=== PATIENT | male | born 1955 | race Caucasian/White ===

== ENCOUNTER 2018-01-03 00:08 | Outpatient (CLI) | payer OTHER, SELFPAY ==
[2018-01-03 11:40] LABS: ALT 29 U/L (12-78); AST 22 U/L (15-37); Albumin 3.7 g/dL (3.4-5.0); Alkaline Phosphatase 63 U/L (46-116); Anion Gap 5.5 mmol/L (3-11); BUN 18 mg/dL (7-18); Bilirubin, Total 0.8 mg/dL (0.2-1.0); CO2 29.5 mmol/L (21.0-32.0); Calcium 8.9 mg/dL (8.5-10.1); Chloride 104 mmol/L (98-107); Cholesterol 190 mg/dL (50-200); Glucose 89 mg/dL (70-100); HDL Cholesterol 86 mg/dL (40-60); LDL CHOLESTEROL 97 mg/dL (<100); Potassium 4.3 mmol/L (3.5-5.1); Sodium 139 mmol/L (136-145); Total Protein 7.2 g/dL (6.4-8.2); Triglyceride 37 mg/dL (30-150)
[2018-01-05 10:21] LABS: PSA, Screening 0.5 ng/ml (0-4.5)
== END 2018-01-03 00:28 ==
PROVIDERS: PCP Nurse Practitioner Family; Visit Provider Nurse Practitioner Family
DX: Z12.5 Encounter for screening for malignant neoplasm of prostate (principal); Z13.220 Encounter for screening for lipoid disorders; Z13.6 Encounter for screening for cardiovascular disorders
CPT/HCPCS: 36415; 80053; 80061; 83721; 84153

== ENCOUNTER 2022-10-30 18:03 | Emergency (ER) | payer OTHER, SELFPAY ==
[2022-10-30] VITALS (18 sets, daily range): BP systolic 93–134; BP diastolic 59–70; PULSE 70–93; RESP 13–27; TEMP 36.6; O2SAT 94
--- NOTE | 2022-10-30 18:30 | RT.EKG_ITS ---
APPROVED REPORT Exam: Resting ECG Reason for Exam: dizziness Patient Location: E HR:84 bpm ECG Measurements Heart Rate 84 AXIS NV 153 P 86 QRSd 92 QRS 78 QT 406 T 68 QTc 478 Conclusion Sinus rhythm...normal P axis, V-rate 60- 99 sinus rhythm, normal axis, normal intervals, non ischemic
--- NOTE | 2022-10-30 19:00 | DI.CT_ITS ---
Exam(s) CT NECK W EXAM: CT NECK W INDICATION: dental abscess and swelling. COMPARISON: No exams were available for comparison TECHNIQUE: FINDINGS: SOFT TISSUES: There is some soft tissue swelling in the lower right face subcutaneous tissues extendi ng into the upper neck but without a distinct abscess evident. VISUALIZED PARANASAL SINUSES: Mucosal thickening and fluid in the right maxillary sinus consistent wi th sinusitis. No sinus wall dehiscence. The opposite-left maxillary sinus appears unremarkable as d o the frontal and sphenoid sinuses. VISUALIZED ORBITS: Unremarkable NASOPHARYNX: Unremarkable OROPHARYNX: Unremarkable. Uvula and tonsils unremarkable. No prevertebral soft tissue swelling. No abscess evident in this region. GENOVEVA DENTAL: Just lateral to the right side of the mandible there is a tubular foreign body structure measuring 2.7 cm length by 0.4 cm wide which is probably short catheter or radiopaque marked bandage material which is most probably with in the oral convert EU between the lateral aspect of the right s francisco of the mandible and buccal mucosa at this level. Clinical correlation recommended. There is an adjacent empty tooth socket in the posterior right mandible at this level which is probably from rece nt extraction of this posterior right mandible molar. HYPOPHARYNX: Unremarkable. Valleculae and epiglottis and aryepiglottic folds appear normal. VOCAL CORDS: Unremarkable. No masses evident. Subglottic airway appears unremarkable. THYROID GLAND: Unremarkable. Normal size and no obvious nodules. SALIVARY GLANDS: Unremarkable. No significant findings in the parotid and submandibular glands. LYMPH NODES: No prominent adenopathy in the neck and supraclavicular regions. OTHER: VISUALIZED LUNG APICES: No significant focal findings. IMPRESSION: 1. There appears to have been recent extraction of a posterior right mandibular molar. Just lateral to this level is a tubular radiopaque foreign body which is either radiopaque folded gauze or tubula r catheter which I suspect was placed by the dentist performed the extraction. 2. There is soft tissue swelling over the right lower face extending into the upper neck but without evidence of subcutaneous abscess. No gross lymphadenopathy evident. 3. Sinusitis findings evident in the right maxillary sinus. The opposite-left maxillary sinus is cl ear. RADIATION DOSE DELIVERED: 298.2mGy.cm Total DLP DATA REPOSITORY: All CT scans at this facility are submitted to the National Radiology Data Registry (NRDR) Dose Index Registry (DIR) with the [employer] ([employer]). RADIATION OPTIMIZATION: All CT scans at this facility use at least one of these dose optimization te chniques: automated exposure control; mA and/or kV adjustment per patient size (includes targeted exa ms where dose is matched to clinical indication); or iterative reconstruction.
--- NOTE | 2022-10-30 19:00 | DI.RAD_ITS ---
Exam(s) XR CHEST 2V PA LATERAL EXAM: XR CHEST 2V PA LATERAL CLINICAL HISTORY: weakness. TECHNIQUE: 2D digital imaging was performed. COMPARISON: CT CT CHEST LUNG CANCER SCREEN from 04/30/2022 FINDINGS: 2 views: Heart size is normal. The mediastinum is not widened. Bilateral nipple shadows noted. Right lung is clear. There is platelike atelectasis in the left hang g base lingular segment. No pleural effusions. IMPRESSION: Platelike atelectasis in left lung base. DATA REPOSITORY: RADIATION DOSE DELIVERED:
--- NOTE | 2022-10-30 19:00 | DI.CT_ITS ---
Exam(s) CT HEAD WO EXAM: CT HEAD WO CLINICAL HISTORY: confusion, dental abscess. TECHNIQUE: Imaging Protocol: Axial computed tomography images with coronal and sagittal reformatted images were created and reviewed COMPARISON: No exams were available for comparison FINDINGS: There are no skull fractures. There is mucosal thickening and fluid in the partially visualized right maxillary sinus. Partially visualized left maxillary sinus is clear as are the sphenoid and frontal sinuses and ethmoidal air cells. There is also no effusions evident in the mastoid air cells bilate rally. There is no evidence of intracranial hemorrhage, mass effect, or shift of midline structures. There are no extra-axial fluid collections. The ventricles are not enlarged or shifted and there is no blo od within the ventricular system nor within the basal cisterns. IMPRESSION: No acute intracranial findings on this noninfused CT scan of the brain. Right maxillary sinusitis. RADIATION DOSE DELIVERED: 778.52mGy.cm Total DLP DATA REPOSITORY: All CT scans at this facility are submitted to the National Radiology Data Registry (NRDR) Dose Index Registry (DIR) with the [employer] ([employer]). RADIATION OPTIMIZATION: All CT scans at this facility use at least one of these dose optimization te chniques: automated exposure control; mA and/or kV adjustment per patient size (includes targeted exa ms where dose is matched to clinical indication); or iterative reconstruction.
[2022-10-30] MEDS: Normal Saline 1,000 ML 1000 ML IV ×2 (19:22→20:47)
[2022-10-30 19:28] LABS: Abs Immature Grans 0.07 10^3/uL (0.0-0.06); Absolute Basophil Count 0.08 10^3/uL (0.0-0.2); Absolute Eosinophil Count 0.11 10^3/uL (0.0-0.7); Absolute Lymphocyte Count 1.81 10^3/uL (1.2-3.4); Absolute Monocyte Count 0.87 10^3/uL (0.1-0.8); Basophils % 0.7; Eosinophils % 0.9; HCT 45.3 % (40.0-50.0); HGB 15.4 g/dL (13.5-17.5); Immature Grans % 0.6; MCH 32.4 pg (27.0-33.0); MCV 95 fL (80-95); Monocytes % 7.2; Neutrophils % 75.6; RBC 4.75 10^6/uL (4.36-5.78); RDW 13.7 % (11.8-14.1); WBC 12.04 10^3/uL (4.4-10.8)
[2022-10-30 19:33] LABS: Lactate 3.1 mmol/L (0.6-1.4)
[2022-10-30 19:51] LABS: Ammonia 27 umol/L (11-32)
[2022-10-30 19:59] LABS: Platelet Count 306 10^3/uL (130-400)
[2022-10-30 20:02] LABS: ALT 40 U/L (16-63); AST 45 U/L (15-37); Albumin 3.4 g/dL (3.4-5.0); Alkaline Phosphatase 77 U/L (46-116); Anion Gap 13.6 mmol/L (3-11); BUN 19 mg/dL (7-18); Bilirubin, Total 0.3 mg/dL (0.2-1.0); CO2 22.4 mmol/L (21.0-32.0); Calcium 9.1 mg/dL (8.5-10.1); Chloride 95 mmol/L (98-107); ETHANOL BLOOD 24.5 mg/dL (<10); Estimated GFR 83.01 (mL/min/1.73m2); Glucose 98 mg/dL (74-106); Magnesium 2.2 mg/dL (1.8-2.4); Potassium 3.6 mmol/L (3.5-5.1); Sodium 131 mmol/L (136-145); TSH (W/Ref FT4) 2.64 uIU/mL (0.36-3.74); Total Protein 7.7 g/dL (6.4-8.2); Troponin I < 50 ng/L (<or=60)
[2022-10-30 20:05] LABS: Procalcitonin 0.1 ng/mL
[2022-10-30] MEDS: Omnipaque 350 MG/ML 100 ML BTL IJ (20:55)
[2022-10-30] MEDS: Normal Saline - Diluent 50 ML VIAL IJ (20:56)
--- NOTE | 2022-10-30 21:18 | DI.VRAD_ITS ---
PROCEDURE INFORMATION: Exam: CT Head Without Contrast Exam date and time: 10/30/2022 8:54 PM Age: 67 years old Clinical indication: Other: Dental abscess and swelling, confusion TECHNIQUE: Imaging protocol: Computed tomography of the head without contrast. Radiation optimization: All CT scans at this facility use at least one of these dose optimization techniques: automated exposure control; mA and/or kV adjustment per patient size (includes targeted exams where dose is matched to clinical indication); or iterative reconstruction. COMPARISON: No relevant prior studies available. FINDINGS: Brain: No acute intracranial hemorrhage, mass-effect, midline shift, or extra-axial collection is seen. The blake white matter differentiation appears preserved. Cerebral ventricles: The ventricular system and basilar cisterns appear appropriate in size and configuration. Paranasal sinuses: There is mucoperiosteal thickening and fluid in the visualized upper portion of the right maxillary sinus. There is minimal mucoperiosteal thickening in the visualized ethmoid air cells. Mastoid air cells: The mastoid air cells appear well-aerated. Auditory system: The middle ear cavities appear clear. Orbital cavities: The globes and intraorbital structures appear grossly intact. Bones/joints: The bony calvarium appears intact. No depressed skull fracture is seen. Soft tissues: No significant scalp lesion is seen. IMPRESSION: 1. No acute intracranial abnormality seen. 2. Mucoperiosteal thickening in the visualized upper portion of the right maxillary sinus. Acute sinusitis could have this appearance. Clinical correlation is recommended. Dictated and Authenticated by: Ross Lujan MD. Ordering:ATUL Sepulveda MD
--- NOTE | 2022-10-30 21:30 | DI.VRAD_ITS ---
PROCEDURE INFORMATION: Exam: XR Chest Exam date and time: 10/30/2022 9:02 PM Age: 67 years old Clinical indication: Other: Weakness TECHNIQUE: Imaging protocol: Radiologic exam of the chest. Views: 2 views. COMPARISON: CT CHEST LUNG CANCER SCREEN 04/30/2022 3:51 PM FINDINGS: Lungs: No pulmonary consolidation is seen. There are symmetric 8 mm nodular densities projected along the expected nipple line, probably representing shadowing from the patient's nipples. Pleural spaces: No pleural effusion or pneumothorax is seen. Heart/Mediastinum: Heart size is normal. Bones/joints: The visualized bony structures appear grossly intact, as seen. IMPRESSION: No active disease is seen in the chest. Dictated and Authenticated by: Ross Lujan MD. Ordering:ATUL Sepulveda MD
--- NOTE | 2022-10-30 21:46 | DI.VRAD_ITS ---
PROCEDURE INFORMATION: Exam: CT Neck With Contrast Exam date and time: 10/30/2022 8:56 PM Age: 67 years old Clinical indication: Other: Dental abscess and swelling; Additional info: Dental abscess and swelling, confusion TECHNIQUE: Imaging protocol: Computed tomography of the neck with contrast. Radiation optimization: All CT scans at this facility use at least one of these dose optimization techniques: automated exposure control; mA and/or kV adjustment per patient size (includes targeted exams where dose is matched to clinical indication); or iterative reconstruction. Contrast material: OMNI 350; Contrast volume: 100 ml; Contrast route: INTRAVENOUS (IV); COMPARISON: CT HEAD WO 10/30/2022 8:54 PM FINDINGS: Orbital cavities: The globes and intraorbital structures appear grossly intact. Mastoid air cells: The mastoid air cells appear well-aerated. Auditory system: The middle ear cavities appear clear. Paranasal sinuses: There is thick mucoperiosteal thickening and fluid in the right maxillary sinus. There is minimal mucoperiosteal thickening in the right ethmoid air cells. Dental: The teeth are partly obscured by artifact from metallic dental work. Within the limits of visualization, no large dental cavity is seen. There is an empty tooth socket in the posterior right mandible suggesting recent extraction of a posterior right mandibular molar. There is a small periapical lucency surrounding the root of the left lateral mandibular incisor, images 28 of series 5 and 32 of series 3, nonspecific but likely a periapical cyst or sequela of chronic apical periodontitis. Pharynx: The nasopharynx appears normal. The oropharynx appears normal. The hypopharynx appears normal. Larynx: The epiglottis appears normal. The larynx appears symmetric. Prevertebral and retropharyngeal spaces: No retropharyngeal fluid collection is demonstrated. Salivary glands: The submandibular salivary glands and parotid glands appear grossly normal. Thyroid: The thyroid gland appears normal in size. Lymph nodes: No pathologically enlarged cervical chain lymph nodes are seen. Trachea: The visualized portion of the trachea appears normal. Lungs: There is emphysema throughout the upper lung zones. Bones/joints: The thyroid cartilage and cricoid cartilage appear symmetric. The hyoid bone appears grossly intact. Vasculature: The carotid arteries, jugular veins, and vertebral arteries are not well evaluated but appear grossly patent, as seen. Soft tissues: There is soft tissue swelling throughout the right lower face and extending into the upper right neck. Within the limits of visualization, no frankly drainable soft tissue abscess is seen. There is radiodense foreign material located along the lateral margin of the right mandibular body with an appearance suspicious for a folded tubular foreign body such as a short catheter fragment or coffee straw. Direct inspection is recommended. It is uncertain if this finding lies within the mouth between the mandibular alveolar ridge in the buccal mucosa or within the adjacent soft tissues. No gross soft tissue fluid collection or mass is seen in the neck. IMPRESSION: 1. Soft tissue swelling throughout the right lower face and extending into the upper neck. No frankly organized drainable fluid collection/abscess seen. Unusual radiodense foreign material along the lateral margin of the right mandibular body with an appearance suspicious for a folded tubular foreign body such as a short catheter, catheter fragment, or coffee straw. It is uncertain if this finding lies within the mouth between the mandibular alveolar ridge in the buccal mucosa or within the adjacent soft tissues. Clinical correlation and direct inspection are recommended. Of note, there is an adjacent empty tooth socket in the posterior right mandible with an appearance suggesting recent extraction of a posterior right mandibular molar. 2. Prominent mucoperiosteal thickening and fluid in the right maxillary sinus with an appearance suspicious for acute on chronic sinusitis. Clinical correlation is recommended. 3. Small periapical dental lucency surrounding the root of the lateral left mandibular incisor. Although nonspecific, a periapical cyst or sequela of chronic apical periodontitis could have this appearance. Dictated and Authenticated by: Ross Lujan MD. Ordering:ATUL Sepulveda MD
[2022-10-30 22:20] LABS: Lactate 0.9 mmol/L (0.6-1.4)
[2022-10-30 22:24] LABS: Troponin I < 50 ng/L (<or=60)
[2022-10-30 22:42] LABS: Bilirubin Negative (Negative); Blood Small (Negative); Clarity Clear (Clear); Glucose Negative (Negative); Ketones Negative (Negative); Leukocyte Esterase Negative (Negative); Nitrite Negative (Negative); Specific Gravity <= 1.005 (1.005-1.025); Urobilinogen 0.2 mg/dL (Up to 0.2); pH 5.5 (5-8)
[2022-10-30 22:58] LABS: Bacteria Rare HPF (Negative); C & S Indicated? No; Casts 0-2 Hyaline LPF (Negative); Crystals Negative HPF (Negative); Epithelial Cells Rare HPF (Negative); Mucus Negative (Negative); WBC 0-2 HPF (0-5)
--- NOTE | 2022-10-30 23:04 | ED.GENADUL_ITS ---
Discharge Plan Disposition Patient Disposition: Home Discharge Details Clinical Impression: Syncope, Dehydration Primary Care Provider: Deborah Aponte ED Provider: Coco Lewis Home Meds and New Rx's Prescriptions: Continued ibuprofen 400 MG tablet 400 mg PO PRN aspirin 81 MG tablet,chewable 81 mg PO DAILY amoxicillin-pot clavulanate 875-125 mg Tablet 1 tab PO BID Discharge Instructions Instructions: Dehydration (ED), Syncope (ED) Additional Instructions: Please follow-up with your primary care physician Have at least ten 8 ounce glasses of water daily, use a straw as I am sure your jaw is quite painful Continue on your antibiotics Follow-up with your doctor tomorrow Return earlier should you have new or worsening complaints Referrals: Deborah Aponte [Primary Care Provider] - Medical Decision Making This 67-year-old male presents with report of possible syncopal event just prior to arrival with persistent confusion Arrival, patient is fully alert and oriented, his vitals are stable, he states he feels weak He states has not been drinking secondary to discomfort Secondary presentation, I did order CT head and facial, evidence of dental decay and drained abscess No evidence of Ron's angina, no CT evidence of acute abnormality Diagnostic blood work does not show significant acute abnormality, initial lactate elevated at 3.1, the tourniquet was on patient's arm at time this was drawn, on repeat it 0.9, after 2 L of fluid, patient has marked improvement in his symptoms, he is ambulatory with steady gait, his gap is 13.9, suspect this was dehydration induced I did consider seizure, however there is no seizure-like activity visualized, patient will need follow-up with his doctor tomorrow He is encouraged to drink at least ten 8 ounce glasses of water daily Patient discharged home in stable condition with stable vitals, will need close outpatient reassessment Alert and oriented and at his baseline per brother and patient in the room, requesting discharge home Medical Records Medical records reviewed: Yes I reviewed the patient's medical records. Lab Data Lab results reviewed: Yes I reviewed the patient's lab results. HPI General Date/Time Provider Initiated Documentation: 10/30/22 18:53 . HPI Narrative: This 67-year-old gentleman with history of alcohol dependence, cannabis dependence, major depressive disorder presents after having a drain placed and abscess the right side of his jaw lower area yesterday in [facility]. He states that he has been having trouble drinking secondary to discomfort with opening his jaw. He denies any chest pain or shortness of breath. He denies any difficulty swallowing. Patient denies any headache. He states today he had gone from sitting to standing and he felt tingly all over the next and he knew he was on the ground. His states that he was really quite out of it at home . She requested that he be evaluated in the emergency department. He denies any chest pain or shortness of breath. He denies any chills but feels like he might have a fever. He states his jaw actually feels better after the drain has been placed yesterday. He denies any difficulty swallowing. He states his jaw still painful. He denies any nausea or vomiting. Denies any illicit drug use. Has had 2 beers today per patient. Has smoked marijuana prior to arrival. Related Data Home Medications Medication Instructions Recorded Confirmed aspirin 81 mg chewable tablet 81 mg PO DAILY 09/16/17 12/01/17 ibuprofen 400 mg tablet 400 mg PO PRN 09/16/17 12/01/17 amoxicillin 875 mg-potassium 1 tab PO BID 10/30/22 10/30/22 clavulanate 125 mg tablet Allergies Allergy/AdvReac Type Severity Reaction Status Date / Time No Known Allergies Allergy Verified 10/30/22 18:38 General Stated Complaint: GenMedical REY: 2 PFSH All Active Problems (Updated 10/30/22 @ 22:59 by JIM Deal) Syncope (Chronic) Dehydration (Acute) Medical History (Updated 10/30/22 @ 22:59 by JIM Deal) Alcohol dependence Ankle fracture, left Bilateral femoral fractures Cannabis dependence Cervicalgia Finger amputation, no complication Irritability and anger Major depressive disorder Personal history of colonic polyps Post-traumatic osteoarthritis Right patella fracture Sciatic pain Tobacco use disorder Surgical History (Updated 12/24/17 @ 14:36 by [employer] [facility]) Appendectomy Colonoscopy - IV Sedation (07/08/13) 3 tubular adenomas Repair of inguinal hernia right Social History (Updated 12/01/17 @ 14:48 by Natacha Mack RN) Smoking/Tobacco Use Status: Current every day Smoking risk assessment performed?: Yes Alcohol Intake: current Alcohol type: beer Drug use: Daily Substance use type: marijuana Housing: house Do you feel safe at home: Yes Do you feel safe in your relationship?: Yes Course Vital Signs Vital signs: Vital Signs Temperature 36.6 C 10/30/22 18:39 Pulse 76 10/30/22 18:39 Respiratory Rate 18 10/30/22 18:39 Blood Pressure 111/66 10/30/22 18:39 Pulse Oximetry 94 10/30/22 18:39 Temperature 36.6 C 10/30/22 18:39 Temperature Source Oral 10/30/22 18:39 Pulse 70 10/30/22 20:31 Pulse 71 10/30/22 20:31 Respiratory Rate 18 10/30/22 20:31 Respiratory Effort Normal 10/30/22 18:52 Respiratory Depth Normal 10/30/22 18:52 Respiratory Pattern Normal 10/30/22 18:52 Blood Pressure 134/68 10/30/22 20:31 Blood Pressure Mean 82 10/30/22 20:31 Blood Pressure Position Sitting 10/30/22 18:39 Pulse Oximetry 94 10/30/22 18:39 Oxygen Delivery Method Room Air 10/30/22 18:39 Oxygen Flow Rate 0 10/30/22 18:39 Pain Level 5 10/30/22 18:39 Lab/Test Results Lab/Test Results: 10/30/22 19:15 Blood Blood Culture - Pending 10/30/22 19:15 Blood Blood Culture - Pending Laboratory Tests Range/Units 10/30/22 10/30/22 10/30/22 19:15 19:15 19:15 WBC (4.4-10.8) 10^3/uL RBC (4.36-5.78) 10^6/uL Hgb (13.5-17.5) g/dL Hct (40.0-50.0) % MCV (80-95) fL MCH (27.0-33.0) pg MCHC (32.0-36.0) % RDW (11.8-14.1) % Plt Count (130-400) 10^3/uL MPV (8.0-11.0) fL Immature Gran % Neutrophils % Lymphocytes % Monocytes % Eosinophils % Basophils % Nucleated RBC % (0.0-0.3) % Absolute Neutrophils (1.2-6.7) 10^3/uL Absolute Lymphocytes (1.2-3.4) 10^3/uL Absolute Monocytes (0.1-0.8) 10^3/uL Absolute Eosinophils (0.0-0.7) 10^3/uL Absolute Basophils (0.0-0.2) 10^3/uL VBG Lactate (0.6-1.4) mmol/L 3.1 H* Sodium (136-145) mmol/L 131 L Potassium (3.5-5.1) mmol/L 3.6 Chloride (98-107) mmol/L 95 L Carbon Dioxide (21.0-32.0) mmol/L 22.4 Anion Gap (3-11) mmol/L 13.6 H BUN (7-18) mg/dL 19 H Creatinine (0.70-1.30) mg/dL 1.0 Est GFR (CKD-EPI 2020) (mL/min/1.73m2) 83.01 Glucose (74-106) mg/dL 98 Calcium (8.5-10.1) mg/dL 9.1 Magnesium (1.8-2.4) mg/dL 2.2 Total Bilirubin (0.2-1.0) mg/dL 0.3 AST (15-37) U/L 45 H ALT (16-63) U/L 40 Alkaline Phosphatase (46-116) U/L 77 Ammonia (11-32) umol/L 27 Troponin I (<or=60) ng/L < 50 Total Protein (6.4-8.2) g/dL 7.7 Albumin (3.4-5.0) g/dL 3.4 Procalcitonin ng/mL 0.1 TSH (0.36-3.74) uIU/mL 2.64 Urine Color (Yellow) Urine Clarity (Clear) Urine pH (5-8) Ur Specific [place] (1.005-1.025) Urine Protein (Negative) mg/dL Urine Ketones (Negative) mg/dL Urine Blood (Negative) Urine Nitrite (Negative) Urine Bilirubin (Negative) Urine Urobilinogen (Up to 0.2) mg/dL Ur Leukocyte Esterase (Negative) Urine RBC (0-2) HPF Urine WBC (0-5) HPF Ur Epithelial Cells (Negative) HPF Urine Crystals (Negative) HPF Urine Bacteria (Negative) HPF Urine Casts (Negative) LPF Urine Mucus (Negative) Ur Culture Indicated? Urine Glucose (Negative) mg/dL Ethyl Alcohol (<10) mg/dL 24.5 H Range/Units 10/30/22 10/30/22 10/30/22 19:15 21:59 22:12 WBC (4.4-10.8) 10^3/uL 12.04 H RBC (4.36-5.78) 10^6/uL 4.75 Hgb (13.5-17.5) g/dL 15.4 Hct (40.0-50.0) % 45.3 MCV (80-95) fL 95 MCH (27.0-33.0) pg 32.4 MCHC (32.0-36.0) % 34.0 RDW (11.8-14.1) % 13.7 Plt Count (130-400) 10^3/uL 306 MPV (8.0-11.0) fL Immature Gran % 0.6 Neutrophils % 75.6 Lymphocytes % 15.0 Monocytes % 7.2 Eosinophils % 0.9 Basophils % 0.7 Nucleated RBC % (0.0-0.3) % 0.0 Absolute Neutrophils (1.2-6.7) 10^3/uL 9.10 H Absolute Lymphocytes (1.2-3.4) 10^3/uL 1.81 Absolute Monocytes (0.1-0.8) 10^3/uL 0.87 H Absolute Eosinophils (0.0-0.7) 10^3/uL 0.11 Absolute Basophils (0.0-0.2) 10^3/uL 0.08 VBG Lactate (0.6-1.4) mmol/L 0.9 Sodium (136-145) mmol/L Potassium (3.5-5.1) mmol/L Chloride (98-107) mmol/L Carbon Dioxide (21.0-32.0) mmol/L Anion Gap (3-11) mmol/L BUN (7-18) mg/dL Creatinine (0.70-1.30) mg/dL Est GFR (CKD-EPI 2020) (mL/min/1.73m2) Glucose (74-106) mg/dL Calcium (8.5-10.1) mg/dL Magnesium (1.8-2.4) mg/dL Total Bilirubin (0.2-1.0) mg/dL AST (15-37) U/L ALT (16-63) U/L Alkaline Phosphatase (46-116) U/L Ammonia (11-32) umol/L Troponin I (<or=60) ng/L < 50 Total Protein (6.4-8.2) g/dL Albumin (3.4-5.0) g/dL Procalcitonin ng/mL TSH (0.36-3.74) uIU/mL Urine Color (Yellow) Urine Clarity (Clear) Urine pH (5-8) Ur Specific [place] (1.005-1.025) Urine Protein (Negative) mg/dL Urine Ketones (Negative) mg/dL Urine Blood (Negative) Urine Nitrite (Negative) Urine Bilirubin (Negative) Urine Urobilinogen (Up to 0.2) mg/dL Ur Leukocyte Esterase (Negative) Urine RBC (0-2) HPF Urine WBC (0-5) HPF Ur Epithelial Cells (Negative) HPF Urine Crystals (Negative) HPF Urine Bacteria (Negative) HPF Urine Casts (Negative) LPF Urine Mucus (Negative) Ur Culture Indicated? Urine Glucose (Negative) mg/dL Ethyl Alcohol (<10) mg/dL Range/Units 10/30/22 22:33 WBC (4.4-10.8) 10^3/uL RBC (4.36-5.78) 10^6/uL Hgb (13.5-17.5) g/dL Hct (40.0-50.0) % MCV (80-95) fL MCH (27.0-33.0) pg MCHC (32.0-36.0) % RDW (11.8-14.1) % Plt Count (130-400) 10^3/uL MPV (8.0-11.0) fL Immature Gran % Neutrophils % Lymphocytes % Monocytes % Eosinophils % Basophils % Nucleated RBC % (0.0-0.3) % Absolute Neutrophils (1.2-6.7) 10^3/uL Absolute Lymphocytes (1.2-3.4) 10^3/uL Absolute Monocytes (0.1-0.8) 10^3/uL Absolute Eosinophils (0.0-0.7) 10^3/uL Absolute Basophils (0.0-0.2) 10^3/uL VBG Lactate (0.6-1.4) mmol/L Sodium (136-145) mmol/L Potassium (3.5-5.1) mmol/L Chloride (98-107) mmol/L Carbon Dioxide (21.0-32.0) mmol/L Anion Gap (3-11) mmol/L BUN (7-18) mg/dL Creatinine (0.70-1.30) mg/dL Est GFR (CKD-EPI 2020) (mL/min/1.73m2) Glucose (74-106) mg/dL Calcium (8.5-10.1) mg/dL Magnesium (1.8-2.4) mg/dL Total Bilirubin (0.2-1.0) mg/dL AST (15-37) U/L ALT (16-63) U/L Alkaline Phosphatase (46-116) U/L Ammonia (11-32) umol/L Troponin I (<or=60) ng/L Total Protein (6.4-8.2) g/dL Albumin (3.4-5.0) g/dL Procalcitonin ng/mL TSH (0.36-3.74) uIU/mL Urine Color (Yellow) Yellow Urine Clarity (Clear) Clear Urine pH (5-8) 5.5 Ur Specific [place] (1.005-1.025) <= 1.005 Urine Protein (Negative) mg/dL Negative Urine Ketones (Negative) mg/dL Negative Urine Blood (Negative) Small H Urine Nitrite (Negative) Negative Urine Bilirubin (Negative) Negative Urine Urobilinogen (Up to 0.2) mg/dL 0.2 Ur Leukocyte Esterase (Negative) Negative Urine RBC (0-2) HPF 3-5 H Urine WBC (0-5) HPF 0-2 Ur Epithelial Cells (Negative) HPF Rare Urine Crystals (Negative) HPF Negative Urine Bacteria (Negative) HPF Rare Urine Casts (Negative) LPF 0-2 Hyaline Urine Mucus (Negative) Negative Ur Culture Indicated? No Urine Glucose (Negative) mg/dL Negative Ethyl Alcohol (<10) mg/dL PAWSS Have you Been Recently Intoxicated or Drunk Within the Last 30 days?: No Have you Ever Experienced Previous Episodes of Alcohol Withdrawal?: No Have you ever Experienced Withdrawal Seizures?: No Have you ever Experienced Delirium Tremens(DT)s?: No Have you ever undergone Alcohol Rehabilitation Treatment (i.e, inpt ot outpatient treatment programs)?: No Have you ever Experienced Blackouts?: No Have you ever Combined Alcohol with other Downers within the last 90 days?: No Have you ever Combined Alcohol with any other Substance of Abuse during the last 90 days?: No Positive Blood Alcohol level on Presentation? [PCS.BAL]: No Evidence of Increased Autonomic Activity (i.e. HR>120, tremor, sweating, agitation, nausea)?: No Result: 0
[2022-10-30 23:10] LABS: *AMPHETAMINES SCREEN URINE Negative (Negative); *BARBITURATES SCREEN URINE Negative (Negative); *BENZODIAZEPINES SCREEN URINE Negative (Negative); Cannabinoids THC Positive (Negative); Cocaine Screen,Urine Negative (Negative); METHADONE URINE SCREEN Negative (Negative); OPIATES URINE SCREEN Negative (Negative)
[2022-10-30 23:11] LABS: Tricyclic Antidepressants Negative (Negative)
--- NOTE | 2022-11-01 13:13 | NUR.NOTE ---
Accessed chart to determine orders for EKG and to determine whether or not one needs to be cancelled. Nursing Note:
== END 2022-10-30 23:14 | disposition home or self-care (01) ==
PROVIDERS: Emergency Provider Physician Assistant; PCP Nurse Practitioner Family
DX: E86.0 Dehydration (principal); R55 Syncope and collapse
CPT/HCPCS: 70491; 80053; 80307; 84145; 87040; 93005; 96360; 96361; 99285; 70450; 71046; 80320; 81003; 81015; 82140; 83605; 83735; 84443; 84484; 85025; 93010; 99284; J3490

== ENCOUNTER → 2023-02-28 01:04 | Outpatient (CLI) | payer OTHER, SELFPAY ==
--- NOTE | 2023-02-28 | DI.US_ITS ---
Exam(s) US AAA DIAGNOSTIC EXAM: US AAA DIAGNOSTIC CLINICAL HISTORY: 3.1 CM DISTAL ABDOMINAL AORTIC ANEURYSM, [id number] COMPARISON: CT CHEST WITH CONTRAST from 08/02/[address] CHEST LUNG CANCER SCREEN from 04/30/2022 FINDINGS: Abdominal Aorta: Proximal: 2.6 x 2.7 cm Mid: 2.2 x 2.5 cm Distal: 3.1 x 3.2 cm Iliac's: Right: 1.4 x 1.5 cm Left: 1.5 x 1.5 cm Atherosclerosis is present. IMPRESSION: 3.1 x 3.2 cm distal abdominal aortic aneurysm. DATA REPOSITORY:
--- NOTE | 2023-02-28 08:52 | DI.RAD_ITS ---
Exam(s) XR LUMBAR SPINE COMPLETE EXAM: XR LUMBAR SPINE COMPLETE CLINICAL HISTORY: LUMBAR BACK PAIN, SPONDYLOSIS, HX TRAUMA, [id number]. TECHNIQUE: 2D digital imaging was performed of the lumbar spine. Five images were obtained. AP, la teral, right oblique, left oblique and L5-S1 spot views were obtained. COMPARISON: No exams were available for comparison FINDINGS: BONES: No fracture or destructive lesion. There are endplate osteophytes throughout the lumbar spine with sparing of L2-3 and L5-S1. There are degenerative changes of the facets seen particularly at L4- 5 and L5-S1. DISKS: There is marked narrowing of the L4-L5 disc space. ALIGNMENT: Lumbar spinal alignment is within normal limits. No spondylolysis or spondylolisthesis. SOFT TISSUE: Atherosclerosis. IMPRESSION: Moderate degenerative changes seen in the lumbar spine. DATA REPOSITORY: RADIATION DOSE DELIVERED:
== END ==
PROVIDERS: PCP Nurse Practitioner Family; Visit Provider Physician Assistant
DX: I71.40 Abdominal aortic aneurysm, without rupture, unspecified (principal); M47.26 Other spondylosis with radiculopathy, lumbar region
CPT/HCPCS: 72110; 76775

== ENCOUNTER 2024-03-05 16:50 | Emergency (ER) | payer OTHER, SELFPAY ==
[2024-03-05] VITALS (25 sets, daily range): BP systolic 126–165; BP diastolic 70–89; PULSE 60–76; RESP 14–22; TEMP 36.2–36.8; O2SAT 94–100
--- NOTE | 2024-03-05 17:29 | W.ED.GENAD ---
Discharge Plan Disposition Patient Disposition: Transfer-Acute Inpatient Care Specific Acute Inpt Facility: [facility] Condition: Stable Discharge Details Chief Complaint: Vascular Clinical Impression: Aortic aneurysm without rupture Primary Care Provider: [facility] ED Provider: Shefali Alcaraz Meds and New Rx's Prescriptions: No Action ibuprofen 400 MG tablet 400 mg PO PRN aspirin 81 MG tablet,chewable 81 mg PO DAILY potassium chloride 1 tab PO DAILY Patient Comments: Pt unsure of dosage 03/05/24 - ML magnesium 1 tab PO DAILY Patient Comments: Pt unsure of dosage 03/05/24 - ML cholecalciferol (vitamin D3) 1 tab PO DAILY Patient Comments: Pt unsure of dosage 03/05/24 - ML amoxicillin-pot clavulanate 875-125 mg Tablet 1 tab PO BID HPI General Date/Time Provider Initiated Documentation: 03/05/24 17:07. HPI Narrative: The patient is a 68-year-old male with a history of COPD and and known abdominal aneurysm who comes to the emergency department needing a CAT scan. The patient reports that he had his routine abdominal ultrasound yesterday. Reports this is only his second ultrasound study from the first 1 a couple years ago. Reports that he was told to go to the ER to get a CAT scan. Reports he is not having any abdominal pain. Reports he feels at baseline health. Denies any new or worsening chest pain or shortness of breath. Denies taking any blood thinning medication including aspirins and NSAIDs. Denies numbness or tingling sensation or any swelling to his legs. Denies any leg pain. Related Data Home Medications ?Medication ?Instructions ?Recorded ?Confirmed aspirin 81 mg chewable tablet 81 mg PO DAILY 09/16/17 03/05/24 ibuprofen 400 mg tablet 400 mg PO PRN 09/16/17 03/05/24 amoxicillin 875 mg-potassium 1 tab PO BID 10/30/22 03/05/24 clavulanate 125 mg tablet cholecalciferol (vitamin D3) 1 tab PO DAILY 03/05/24 03/05/24 magnesium 1 tab PO DAILY 03/05/24 03/05/24 potassium chloride 1 tab PO DAILY 03/05/24 03/05/24 Allergies Allergy/AdvReac Type Severity Reaction Status Date / Time No Known Allergies Allergy Verified 03/05/24 17:03 General Stated Complaint: Vascular REY: 3 Review of Systems Narrative: Review of systems are negative except as mentioned. Constitutional Constitutional: Denies fever(s) Cardiovascular Cardiovascular: Denies chest pain Respiratory Comments: Denies any new or worsening cough or shortness of breath. Gastrointestinal Gastrointestinal: Denies abdominal pain and Denies vomiting Musculoskeletal Comments: Denies any leg pain, leg swelling, numbness or tingling sensation. Exam Const General: no acute distress Orientation: alert, awake and oriented x3 Resp Auscultation: clear to auscultation bilaterally Cardio Rate: regular rate Rhythm: regular rhythm GI Palpation: soft and nontender Auscultation: normal bowel sounds Extrem Other: Patient has no lower extremity edema or calf tenderness noted. Course Vital Signs Vital signs: Vital Signs Temperature 36.2 C L 03/05/24 16:58 Pulse 63 03/05/24 16:58 Respiratory Rate 14 03/05/24 16:58 Blood Pressure 126/74 03/05/24 16:58 Pulse Oximetry 95 03/05/24 16:58 Temperature 36.2 C L 03/05/24 16:58 Pulse 63 03/05/24 16:58 Respiratory Rate 14 03/05/24 16:58 Blood Pressure 126/74 03/05/24 16:58 Blood Pressure Position Sitting 03/05/24 16:58 Pulse Oximetry 95 03/05/24 16:58 Oxygen Delivery Method Room Air 03/05/24 16:58 Oxygen Flow Rate 0 03/05/24 16:58 Pain Level 0 03/05/24 16:58 Medical Decision Making I reviewed the patient's ultrasound study done from yesterday through [facility] and it showed as interpreted by the radiologist: Roughly stable size of abdominal aortic aneurysm. New area of outpouching with to and fro blood flow suspicious for pseudoaneurysm. CT angiography recommended for further evaluation. Unexpected findings. Given this finding I told the patient of plan for further imaging study in the form of angiography and he agrees. Blood work is back and this is unremarkable. CT is resulted and he is found to have no evidence of abdominal aortic aneurysm. He does have the outpouching which could represent a pseudoaneurysm however it does not fill with contrast nevertheless since this is a new finding I do have vascular paged at [facility]. I was able to speak with vascular surgeon at [facility], Dr. Cortes. He was able to review the imaging study himself and recommended the patient be transferred to [facility] in the emergency department. I subsequently spoke with ED attending, Dr. Cooney who will be my accepting physician. I explained to the patient the recommendation of the vascular surgeon and he agreed for transfer. He signed the consent form which will be included in his chart. The patient continues to be asymptomatic and hemodynamically stable in the meantime which is reassuring. Imaging Data Radiologic Study: Imaging: CT Scan (CTA abdomen and pelvis) Radiologist's impression: 1. 3.6 x 3.3 cm infrarenal abdominal aortic aneurysm. No evidence of rupture. There is an outpouching seen at the inferior left aspect of the aneurysm. It measures 1.2 x 1.4 cm. This appears to account for the findings seen on the abdominal ultrasound and may represent a pseudoaneurysm. On the current examination, it does not fill with contrast. 2. Evaluation of the abdominal pelvic organs is limited due to the timing of the bolus. 3. Question of heterogeneity of the liver. This may be due to bolus timing. Outpatient CT of the abdomen with/or abdominal ultrasound is recommended for further evaluation. Quality:SDOH Health Related Social Needs: No Data to Display PFSH All Active Problems (Updated 03/05/24 @ 20:06 by Shefali Alcaraz DO) Aortic aneurysm without rupture (Acute) Medical History (Updated 03/05/24 @ 20:06 by Shefali Alcaraz DO) Ankle fracture, left Personal history of colonic polyps Cervicalgia Irritability and anger Bilateral femoral fractures Tobacco use disorder Cannabis dependence Finger amputation, no complication Right patella fracture Post-traumatic osteoarthritis Major depressive disorder Alcohol dependence Sciatic pain Surgical History (Updated 12/24/17 @ 14:[address] [employer] [address]) Repair of inguinal hernia right Colonoscopy - IV Sedation (07/08/13) 3 tubular adenomas Appendectomy Social History (Updated 12/01/17 @ 14:48 by Natacha Mack RN) Smoking/Tobacco Use Status: Current every day Smoking risk assessment performed?: Yes Alcohol Intake: current Alcohol type: beer Drug use: Daily Substance use type: marijuana Housing: house Do you feel safe at home: Yes Do you feel safe in your relationship?: Yes
[2024-03-05 17:38] LABS: Abs Immature Grans 0.01 10^3/uL (0.0-0.06); Absolute Basophil Count 0.06 10^3/uL (0.0-0.2); Absolute Eosinophil Count 0.13 10^3/uL (0.0-0.7); Absolute Lymphocyte Count 3.32 10^3/uL (1.2-3.4); Absolute Monocyte Count 0.51 10^3/uL (0.1-0.8); Absolute Neutrophil Count 3.89 10^3/uL (1.2-6.7); Basophils % 0.8 %; Eosinophils % 1.6 %; HCT 44.3 % (40.0-50.0); Immature Grans % 0.1 %; Lymphocytes % 41.9 %; MCH 32.8 pg (27.0-33.0); MCHC 33.9 % (32.0-36.0); MCV 97 fL (80-95); MPV 8.8 fL (8.0-11.0); Monocytes % 6.4 %; Neutrophils % 49.2 %; Platelet Count 239 10^3/uL (130-400); RBC 4.58 10^6/uL (4.36-5.78); RDW 13.5 % (11.8-14.1); RDW-SD 48.3 fL; WBC 7.92 10^3/uL (4.4-10.8)
[2024-03-05 17:48] LABS: ALT 19 U/L (16-63); AST 18 U/L (15-37); Albumin 3.2 g/dL (3.4-5.0); Alkaline Phosphatase 68 U/L (46-116); Anion Gap 7.4 mmol/L (3-11); BUN 13 mg/dL (7-18); Bilirubin, Total 0.27 mg/dL (0.2-1.0); CO2 26.6 mmol/L (21.0-32.0); CREATININE 0.9 mg/dL (0.70-1.30); Calcium 8.6 mg/dL (8.5-10.1); Chloride 105 mmol/L (98-107); Estimated GFR 93.61 (mL/min/1.73m2); Glucose 91 mg/dL (74-106); Potassium 4.3 mmol/L (3.5-5.1); Sodium 139 mmol/L (136-145)
[2024-03-05] MEDS: Normal Saline - Diluent 50 ML VIAL IJ (17:53)
[2024-03-05] MEDS: Omnipaque 350 MG/ML 100 ML BTL IJ (17:53)
--- NOTE | 2024-03-05 17:53 | DI.CT_ITS ---
Exam(s) CT ABDOMEN PELVIS CTA EXAM: CT ABDOMEN PELVIS CTA CLINICAL HISTORY: pseudo aneurism on US yest. TECHNIQUE: Imaging Protocol: Axial CT angiography was performed with multi-slice acquisition and m ulti-planar and/or 3D reconstructions. CONTRAST MATERIAL: Intravenous: Omnipaque 350 Contrast volume:100mL Oral: No COMPARISON: US US AAA DIAGNOSTIC from 03/04/[address] CHEST LUNG CANCER SCREEN from 03/04/2024 FINDINGS: ABDOMEN AND PELVIS: Abdomen: Celiac axis/mesenteric arteries: No evidence of occlusion or significant stenosis. There is mild athe rosclerosis seen in the proximal superior mesenteric artery. Renal Arteries: No evidence of occlusion or significant stenosis. There is mild atherosclerotic calci fications seen in the left renal artery. Aorta: No evidence of occlusion or significant stenosis. Atherosclerotic calcification is present. There is a 3.6 x 3.3 cm infrarenal abdominal aortic aneurysm. There is a 1.2 x 1.4 cm outpouching at the anterior left aspect of the abdominal aorta (series 10, image 96). This appears to correspond t o the finding seen on the ultrasound from 03/04/2024. This does not collect with contrast. There is mural thrombus seen in a large portion of the abdominal aorta. Pelvis: Iliac Arteries: No evidence of occlusion or significant stenosis. Atherosclerotic calcification is p resent. There is less than 50 percent stenosis. Common Femoral Arteries: No evidence of occlusion or significant stenosis. There is mild atheroscler otic calcification present. ABDOMEN: Due to the timing of the bolus, there is suboptimal enhancement of the abdominal organs. Lung bases: There is dependent atelectasis in the lung bases. Liver: Mildly heterogeneous areas of enhancement are seen in the liver but cannot be further evaluate d due to the timing of the bolus. Portal, Superior Mesenteric, and Splenic Veins: There is suboptimal opacification of the portal, supe rior mesenteric and splenic veins. Gallbladder and Biliary Tract: Cholelithiasis. No biliary ductal dilatation. Pancreas: Normal density, no abnormal calcifications or inflammatory process. Spleen: Normal. Adrenals: No masses seen. Kidneys: Normal size, contour and axis. No radiodense stones or obstructive uropathy. No masses seen. Bowel: No obstruction or bowel wall thickening. There is no evidence of appendicitis. The stomach is incompletely distended limiting evaluation. Peritoneal Cavity: No ascites, collection or mesenteric inflammatory response. No free air. Lymph Nodes: Within normal limits. Bones: Within normal limits for the patient's age. Soft Tissues: There is a tiny fat containing umbilical hernia. PELVIS: Bladder: Symmetric distention, no gross wall thickening. Reproductive Organs: Unremarkable as visualized. Lymph Nodes: Within normal limits. Bones: Within normal limits. IMPRESSION: 1. 3.6 x 3.3 cm infrarenal abdominal aortic aneurysm. No evidence of rupture. There is an outpouchi ng seen at the anterior left aspect of the aneurysm (series 10, image 96). It measures 1.2 x 1.4 cm. This appears to account for the finding seen on the abdominal ultrasound and may represent a pseudo aneurysm. On the current examination, it does not fill with contrast. 2. Evaluation of the abdominal pelvic organs is limited due to the timing of the bolus. 3. Question of heterogeneity of the liver. This may be due to the bolus timing. Outpatient CT of th e abdomen and/or abdominal ultrasound is recommended for further evaluation. Unexpected findings RADIATION DOSE DELIVERED: 164.65mGy.cm Total DLP DATA REPOSITORY: All CT scans at this facility are submitted to the National Radiology Data Registry (NRDR) Dose Index Registry (DIR) with the [employer] (ACR). RADIATION OPTIMIZATION: All CT scans at this facility use at least one of these dose optimization te chniques: automated exposure control; mA and/or kV adjustment per patient size (includes targeted exa ms where dose is matched to clinical indication); or iterative reconstruction.
--- NOTE | 2024-03-05 18:54 | W.PC.ACHO1 ---
Registration Status: Primary Language: Preferred Language: ED Information & Data Chief Complaint Vascular 03/05/24 17:35 Triage Note Pt arrives to ED w/ concerns 03/05/24 16:58 for a problem w/ his known aneurysm. Pt denies any pain or other concerns. Pt states he had imaging of his abdomen for a known AAA on 03/04 here, [facility] and told him to come her to the ED to be evaluated. Medical / Surgical History Alcohol dependence Ankle fracture, left Bilateral femoral fractures Cannabis dependence Cervicalgia Finger amputation, no complication Irritability and anger Major depressive disorder Personal history of colonic polyps Post-traumatic osteoarthritis Right patella fracture Sciatic pain Tobacco use disorder Appendectomy Colonoscopy - IV Sedation (07/08/13) Repair of inguinal hernia Most Recent Vital Signs Temperature 36.2 C L 03/05/24 16:58 Pulse 63 03/05/24 18:31 Respiratory Rate 18 03/05/24 17:38 Respiratory Effort Normal 03/05/24 17:38 Blood Pressure 132/75 03/05/24 18:31 Blood Pressure Mean 94 03/05/24 18:31 Blood Pressure Position Sitting 03/05/24 16:58 Pulse Oximetry 99 03/05/24 18:31 Oxygen Delivery Method Room Air 03/05/24 16:58 Oxygen Flow Rate 0 03/05/24 16:58 Pain Level 0 03/05/24 16:58 Allergies No Known Allergies Allergy (Verified 03/05/24 17:03) Precautions Isolation Standard precaution 03/05/24 17:04 Active Medications Generic Name Dose Route Start Last Admin Trade Name Treeq PRN Reason Stop Dose Admin Iohexol 100 ml 03/05/24 18:00 03/05/24 17:53 Omnipaque 350 Mg/Ml 100 Ml Btl IJ 04/04/24 23:59 100 ml DIRECTED TONY Administration Sodium Chloride 50 ml 03/05/24 18:00 03/05/24 17:53 Normal Saline - Diluent 50 Ml Vial IJ 50 ml .FOR DI USE TONY Administration IV IV Catheter Type [Right Diffusics Antecubital] Diagnostics 03/05/24 Range/Units 17:25 WBC 7.92 (4.4-10.8) 10^3/uL RBC 4.58 (4.36-5.78) 10^6/uL Hgb 15.0 (13.5-17.5) g/dL Hct 44.3 (40.0-50.0) % MCV 97 H (80-95) fL MCH 32.8 (27.0-33.0) pg MCHC 33.9 (32.0-36.0) % RDW 13.5 (11.8-14.1) % Plt Count 239 (130-400) 10^3/uL MPV 8.8 (8.0-11.0) fL Immature Gran % 0.1 % Neutrophils % 49.2 % Lymphocytes % 41.9 % Monocytes % 6.4 % Eosinophils % 1.6 % Basophils % 0.8 % Nucleated RBC % 0.0 (0.0-0.3) % Absolute Neutrophils 3.89 (1.2-6.7) 10^3/uL Absolute Lymphocytes 3.32 (1.2-3.4) 10^3/uL Absolute Monocytes 0.51 (0.1-0.8) 10^3/uL Absolute Eosinophils 0.13 (0.0-0.7) 10^3/uL Absolute Basophils 0.06 (0.0-0.2) 10^3/uL Sodium 139 (136-145) mmol/L Potassium 4.3 (3.5-5.1) mmol/L Chloride 105 (98-107) mmol/L Carbon Dioxide 26.6 (21.0-32.0) mmol/L Anion Gap 7.4 (3-11) mmol/L BUN 13 (7-18) mg/dL Creatinine 0.9 (0.70-1.30) mg/dL Est GFR (CKD-EPI 2020) 93.61 (mL/min/1.73m2) Glucose 91 (74-106) mg/dL Calcium 8.6 (8.5-10.1) mg/dL Total Bilirubin 0.27 (0.2-1.0) mg/dL AST 18 (15-37) U/L ALT 19 (16-63) U/L Alkaline Phosphatase 68 (46-116) U/L Total Protein 7.0 (6.4-8.2) g/dL Albumin 3.2 L (3.4-5.0) g/dL Intake and Output - 24 Hour Total 03/05/24 16:50 thru 03/05/24 17:37 Intake Total 10 Balance 10 Weight 72.575 kg Intake: IV 10 Falls Risk Assessment History of Falls No History 03/05/24 17:08 Contributing Factors No Factors 03/05/24 17:08 Ambulatory Aids Independent 03/05/24 17:08 Tubes/Lines W/no contributing factors 03/05/24 17:08 Gait Evaluation No gait disturbance 03/05/24 17:08 Cognition No cognitive impairment 03/05/24 17:08 Fall Total Score 10 03/05/24 17:08 Level of Risk Standard/Low Risk 03/05/24 17:08 v v v v v v v v v Sending and/or Receiving Nurses: Please use comment section below to note any information pertinent to the patient hand-off not included above. Information / Comments: All questions answered with Bedside Report Report received from: Jane Mckeon RN
--- NOTE | 2024-03-05 20:30 | NUR.NOTE ---
Nursing report called to [facility]. Spoke with Aster GEOGRE, all questions answered.
== END 2024-03-05 20:30 | disposition short-term general hospital (02) ==
PROVIDERS: Emergency Provider Emergency Medicine
DX: I71.43 Infrarenal abdominal aortic aneurysm, without rupture (principal); I74.09 Other arterial embolism and thrombosis of abdominal aorta; F17.200 Nicotine dependence, unspecified, uncomplicated; J44.9 Chronic obstructive pulmonary disease, unspecified; Z79.82 Long term (current) use of aspirin
CPT/HCPCS: 36415; 80053; 99285; 74174; 85025; J3490

== ENCOUNTER 2024-07-22 12:07 | Emergency (ER) | payer OTHER, SELFPAY ==
[2024-07-22] VITALS (73 sets, daily range): BP systolic 142–228; BP diastolic 80–153; PULSE 58–120; RESP 10–28; TEMP 37; O2SAT 94–100
[2024-07-22 13:14] LABS: Bilirubin Small (Negative); Blood Negative (Negative); Clarity Clear (Clear); Glucose Negative (Negative); Ketones Trace mg/dL (Negative); Leukocyte Esterase Negative (Negative); Nitrite Negative (Negative); pH 6.5 (5-8)
[2024-07-22 13:22] LABS: Bacteria Negative HPF (Negative); C & S Indicated? No; Casts 0-2 Hyaline LPF (Negative); Crystals Negative HPF (Negative); Epithelial Cells Rare HPF (Negative); Mucus Trace (Negative); RBC 0-2 HPF (0-2); WBC Negative HPF (0-5)
[2024-07-22 13:28] LABS: Lactate 0.7 mmol/L (<or=2.0)
[2024-07-22 13:30] LABS: Abs Immature Grans 0.02 10^3/uL (0.0-0.06); Absolute Basophil Count 0.05 10^3/uL (0.0-0.2); Absolute Eosinophil Count 0.09 10^3/uL (0.0-0.7); Absolute Lymphocyte Count 2.43 10^3/uL (1.2-3.4); Absolute Monocyte Count 0.52 10^3/uL (0.1-0.8); Absolute Neutrophil Count 5.16 10^3/uL (1.2-6.7); Basophils % 0.6 %; Eosinophils % 1.1 %; HCT 43.9 % (40.0-50.0); Immature Grans % 0.2 %; Lymphocytes % 29.4 %; MCH 32.5 pg (27.0-33.0); MCHC 34.2 % (32.0-36.0); MCV 95 fL (80-95); MPV 8.9 fL (8.0-11.0); Monocytes % 6.3 %; Neutrophils % 62.4 %; Platelet Count 249 10^3/uL (130-400); RBC 4.61 10^6/uL (4.36-5.78); RDW 14.5 % (11.8-14.1); RDW-SD 50.2 fL; WBC 8.27 10^3/uL (4.4-10.8)
--- NOTE | 2024-07-22 13:45 | DI.CT_ITS ---
Exam(s) CT ABDOMEN PELVIS CTA EXAM: CT ABDOMEN PELVIS CTA CLINICAL HISTORY: epigastric and lower abd pain, hx AAA. TECHNIQUE: Imaging Protocol: Triphasic protocol was employed with precontrast sequence as well as ar terial phase and delayed 90 second post contract sequences form. Axial computed tomography images with coronal and sagittal reformatted images were created and review ed CONTRAST MATERIAL: Intravenous: Omnipaque 350 Contrast volume:100 ml COMPARISON: CT CT ABDOMEN PELVIS CTA from 03/05/2024 FINDINGS: ABDOMEN: AORTA: There has been interval EVAR repair. Although the maximum external diameter of the [place] aortic sac is 3.3 cm, the size of the anterolate ral aortic outpouching/saccular aneurysm has increased, presently measuring 2 cm by 2.7 cm by 22.4 cm craniocaudal. It does not exhibit internal contrast on the postcontrast sequences. There is otherwise no evidence of obvious other endoleak(s). There is no prominent focal intra stent stenosis nor anastomotic stenosis in the iliac arteries. There is satisfactory perfusion of the celiac and SMA arteries as well as the renal arteries. There is no ascites. There are no ischemic appearing bowel loops. LIVER: There are no focal hepatic lesions nor dilatation of intrahepatic ducts. GALLBLADDER/BILIARY: Gallstones noted. No gallbladder wall edema nor pericholecystic fluid. CBD is not dilated. PANCREAS: No evidence of pancreatic mass nor dilatation of the pancreatic duct. SPLEEN: Spleen is not enlarged. There are no intrasplenic lesions. ADRENALS: There are no significant adrenal masses. KIDNEYS: No cysts evident. No calculi nor hydronephrosis. No solid renal masses. LYMPH NODES: There is no retroperitoneal nor para-aortic adenopathy. No obvious mesenteric masses. ABDOMINAL WALL: No evidence of significant anterior abdominal wall hernia. GI: There is no evidence of bowel obstruction, free air, nor abscess. PELVIS: LYMPH NODES: There is no intrapelvic nor inguinal adenopathy. GI: No evidence of appendicitis.No evidence of sigmoid diverticulitis. URINARY BLADDER: No calculi nor masses evident REPRODUCTIVE: Prostate size normal. Seminal vesicles unremarkable. OSSEOUS: No significant osseous lesions. IMPRESSION: 1. Compared to the prior CT scan 03/05/2024 there has been placement of an aortic EVAR. Although the re is no obvious grade 1-4 endoleak, the size of the excluded anterior left-sided saccular aneurysm o f the aorta has significantly increased in size, presently measuring 2.7 cm x 2.7 x2.4 cm. This impl ies an element of endo tension which is classified as type 5 endoleak. 2. There is no ischemic appearing bowel and there is no ascites nor free air. 3. Incidentally noted differential perfusion in the upper and lower half of the left kidney. Weaker nephrogram in the upper half of the left kidney noted, possibly significant 4. Cholelithiasis. No evidence of obvious acute cholecystitis nor dilatation of the CBD. Findings discussed with ER physician 07/22/2024 at 3:40 p.m. RADIATION DOSE DELIVERED: 806.64mGy.cm Total DLP DATA REPOSITORY: All CT scans at this facility are submitted to the National Radiology Data Registry (NRDR) Dose Index Registry (DIR) with the [employer] (ACR). RADIATION OPTIMIZATION: All CT scans at this facility use at least one of these dose optimization te chniques: automated exposure control; mA and/or kV adjustment per patient size (includes targeted exa ms where dose is matched to clinical indication); or iterative reconstruction.
[2024-07-22 13:51] LABS: ALT 18 U/L (16-63); AST 15 U/L (15-37); Albumin 3.6 g/dL (3.4-5.0); Alkaline Phosphatase 73 U/L (46-116); Anion Gap 5.2 mmol/L (3-11); BUN 17 mg/dL (7-18); Bilirubin, Total 0.4 mg/dL (0.2-1.0); CO2 28.8 mmol/L (21.0-32.0); CREATININE 0.9 mg/dL (0.70-1.30); Calcium 9.3 mg/dL (8.5-10.1); Chloride 104 mmol/L (98-107); Estimated GFR 93.03 (mL/min/1.73m2); Glucose 96 mg/dL (74-106); Lipase 99 U/L (<78); Magnesium 2.3 mg/dL (1.8-2.4); Potassium 4.1 mmol/L (3.5-5.1); Sodium 138 mmol/L (136-145); Total Protein 7.6 g/dL (6.4-8.2); Troponin I 9 ng/L (<or=76)
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
[2024-07-22] MEDS: Omnipaque 350 MG/ML 100 ML BTL IJ (14:21)
[2024-07-22] MEDS: Normal Saline - Diluent 50 ML VIAL IJ (14:21)
[2024-07-22 14:40] LABS: Troponin I 10 ng/L (<or=76)
[2024-07-22] MEDS: Acetaminophen 500 MG TAB 1000 MG PO (16:40)
[2024-07-22] MEDS: Ketorolac 15 MG/ML VIAL IVP (16:40)
[2024-07-22] MEDS: MORPHine 4 MG/ML SYR IVP (17:25)
--- NOTE | 2024-07-22 19:45 | ED.PROG_ITS ---
Date of service: 07/22/24 Time of Service: 16:30 Medical Decision Making MDM: Summary: Patient presents to the emergency department and was seen by Dr. Naz Sage who came with lower abdominal pain and back pain. Patient has a history of a endovascular aortic repair last January at [facility] where he never followed up. He also history of hypertension and we do not know if he has been taking his meds. Dr. Saavedra was concerned and did a CT scan which shows a type V endoleak. Labs are unremarkable but patient was signed out to me to get a consult from vascular surgery. Spoke with vascular surgery at [facility] who were not concerned but still wanted the patient evalua leslie in the emergency department reason the patient will be transferred to [facility]'s ER and has been accepted by the emergency department attending. Data Review Analysis All the data on this patient was reviewed by me including laboratory and imaging studies as well as bedside studies performed by me Independent review of Studies Imaging Type V endoleak of the EVAR Lab: Risk Stratification: Patient with back pain and suprapubic pain and will need evaluation of a endoleak of the aortic graft Differential Diagnosis: 1.EVAR endoleak 2.lumbar radiculopathy 3.sciatica 4. 5. Consultants: Vascular surgery at [facility] Shared disposition: Patient is signed disposition and agrees to be transferred to [facility] ER Impression: Medical Records Medical records reviewed: Yes I reviewed the patient's medical records. Lab Data Lab results reviewed: Yes I reviewed the patient's lab results. Quality:[facility] Related Social Needs: No Data to Display Exam Narrative Exam Narrative: Exam; vitals signs as reported above normal Constitutional; In no acute distress, afebrile General: cooperative, healthy appearing, comfortable and no acute distress HEENT: Head: normal to inspection, no palpable skull fracture and normocephalic atraumatic Eyes: : appearance normal, both eyes and all related structures EOM intact bilaterally Pupils: PERRL : conjunctiva normal Direct ophthalmoscopy: normal light reflex, normal conjunctiva, normal visual acuity Ears: Normal TM, normal external canal Nose: normal no rhinorreha Neck no JVD, supple non tender Neck: normal visual inspection, full ROM and no lymphadenopathy Chest: normal inspection of the chest Respiratory : normal respiratory effort and able to speak in complete sentences no wheezing no rales Cardio Rate: regular rate, rhythm: regular rhythm normal heart sounds S1 and S2 no murmurs, gallops, or rubs GI : normal to inspection, normal bowel sounds, soft, non tender, non distended, no organomegaly Back/Spine/ no CVA tenderness Thoracic/Lumbar Spine: Mild tenderness no deformities Skin no rashes or lesions Neuro: patient alert oriented x 4 and no meningeal signs, Cranial Nerves: CN's II-XI intact bilaterally, Cognition: normal cognition, Speech: speech normal, Gait: normal gait, Depp tendon reflexes normal 2+ muscle strength 5/5 bilaterally Extremities, no edema, full range of motion, normal strength Discharge Plan Disposition Patient Disposition: Transfer-Acute Inpatient Care Specific Acute Inpt Facility: [facility] Condition: Improving Discharge Details Clinical Impression: Type V endoleak of aortic graft Primary Care Provider: [facility] Provider: Kobe Jenkins Meds and New Rx's Prescriptions: Continued cholecalciferol (vitamin D3) 1 tab PO DAILY Patient Comments: Pt unsure of dosage 03/05/24 - ML Discharge Data Discharge Physician: Kobe Jenkins
[2024-07-22] MEDS: HYDROmorphone 2 MG/ML SYR 0.5 MG IVP (19:49)
== END 2024-07-22 19:56 | disposition short-term general hospital (02) ==
PROVIDERS: Emergency Medicine; Emergency Provider Emergency Medicine Emergency Medical Services
DX: I71.43 Infrarenal abdominal aortic aneurysm, without rupture (principal); J44.9 Chronic obstructive pulmonary disease, unspecified; F17.210 Nicotine dependence, cigarettes, uncomplicated
CPT/HCPCS: 00123; 80053; 83690; 96374; 96375; 99285; 74174; 81003; 81015; 83605; 83735; 84484; 85025; J1171; J1885; J2270; J3490